=== PATIENT | female | born 1950 | race Caucasian/White ===

== ENCOUNTER 2023-08-25 06:17 | Observation (INO) ==
--- NOTE | 2023-07-21 13:43 | PAT Medication Instructions ---
Medication Instructions Date of Service July 21, 2023 Home Medications amlodipine 5 mg tablet 5 mg PO QPM atorvastatin 20 mg tablet 20 mg PO QPM hydrochlorothiazide 12.5 mg tablet 12.5 mg PO UD losartan 100 mg tablet 100 mg PO QPM cholecalciferol (vitamin D3) 50 mcg (2,000 unit) capsule (Vitamin D3) 50 mcg PO QAM diphenoxylate-atropine 2.5 mg-0.025 mg tablet (Lomotil) 1 tab PO DAILY sertraline 100 mg tablet (Zoloft) 100 mg PO QAM MEDICATION INSTRUCTIONS: DO NOT take the morning of surgery hydrochlorothiazide 12.5 mg tablet 12.5 mg PO UD cholecalciferol (vitamin D3) 50 mcg (2,000 unit) capsule (Vitamin D3) 50 mcg PO QAM diphenoxylate-atropine 2.5 mg-0.025 mg tablet (Lomotil) 1 tab PO DAILY Take morning of surgery With a small sip of water, OTHERWISE NOTHING TO EAT OR DRINK AFTER MIDNIGHT: sertraline 100 mg tablet (Zoloft) 100 mg PO QAM Take evening before surgery amlodipine 5 mg tablet 5 mg PO QPM atorvastatin 20 mg tablet 20 mg PO QPM losartan 100 mg tablet 100 mg PO QPM Other Notes If you have any questions please call us at [phone] or [phone] or [phone] or [phone]
--- NOTE | 2023-07-27 09:16 | Anesthesiology Consultation ---
Date of Service July 27, 2023 Assessment & Plan (1) Encounter for pre-operative examination: Plan - cardiology clearance 06/26/23 [facility]: "...prolong WT interval...transient QT prolongation on EKG OctoberJanuary 2018 in association with acute illness and medications. No further QT prolongation...denies any cardiac complications...anticipates knee surgery...continue current medications...No cardiac contraindications to planned knee surgery..." - Outpatient joint assessment: Patient is currently scheduled for inpatient pathway. If re-evaluated and patient/surgeon requests outpatient pathway, per discussion with Dr. Sr patient is acceptable candidate for outpatient joint program from anesthesia standpoint pending surgeon's office assessment of pt motivation/support/completion of same day joint program preop requirements. Chart Review Chart Review: Acceptable Risk for Surgery and Patient seen in Pre Admission Testing Teaching & Discussion Pre-Anesthesia Teaching/Discussion Notes: Instructed NPO after midnight before surgery, except medications with 15 cc of water. Medication instructions provided according to the PAT guidelines. History Surgery Operation Date: 08/25/23 10:15 Proposed Procedures p Right Total Knee Arthroplasty - Chuck Larson DO Height/Weight Height: 5 ft 8 in Weight: 84.2 kg Allergies Allergy/AdvReac Type Severity Reaction Status Date / Time oxaliplatin Allergy Anaphylaxis Verified 07/15/23 08:29 Medications Home Medications Medication Instructions Recorded Confirmed Last Taken amlodipine 5 mg tablet 5 mg PO QPM 11/01/20 07/15/23 03/13/22 21:00 atorvastatin 20 mg tablet 20 mg PO QPM 11/01/20 07/15/23 03/13/22 21:00 hydrochlorothiazide 12.5 mg tablet 12.5 mg PO UD 11/01/20 07/15/23 03/10/22 09:00 losartan 100 mg tablet 100 mg PO QPM 11/01/20 07/15/23 03/13/22 21:00 cholecalciferol (vitamin D3) 50 50 mcg PO QAM 07/26/21 07/15/23 03/07/22 21:00 mcg (2,000 unit) capsule (Vitamin D3) diphenoxylate-atropine 2.5 1 tab PO DAILY 07/10/23 07/15/23 Unknown mg-0.025 mg tablet (Lomotil) sertraline 100 mg tablet (Zoloft) 100 mg PO QAM 07/15/23 07/15/23 Unknown Past Medical History Medical History (Updated 07/27/23 @ 09:13 by Chika Wright PA-C) Anxiety Persaud esophagus Bradycardia Chronic, asymptomatic Baseline HR 40-60s Breast cancer Right, 2002 s/p surgery/chemo/xrt-denies limb restriction Chronic vertigo Colon cancer 2007, s/p surgery/chemo Degenerative arthritis of knee, bilateral Eczema History of anesthesia reaction bradycardia History of basal cell cancer s/p excision History of COVID-19 04/2023, mild symptoms, resolved History of Mohs micrographic surgery for skin cancer SCC, Right eye History of rheumatic fever as a child HTN (hypertension) controlled, stable per pt Hyperlipidemia Mitral valve prolapse 2022 ECHO--mild, follows with Dr Herring Multiple thyroid nodules Recent test/evaluation "all normal" Prediabetes Prolonged QT interval Possibly medication induced per records (follows with Dr. Herring) PVCs (premature ventricular contractions) Hx, no current issues TMJ (temporomandibular joint disorder) No locking Patient denies h/o stroke, seizures, heart attack, heart failure, blood clots/DVTs or blood transfusions. Exercise / Class Metabolic Activity II 4-5 Yardwork/Stairs/Walk up hill (denies chest discomfort or shortness of breath with 1 FOS) Past Family History Family History Mother Colon cancer, Onset Age: 43 Past Surgical History Surgical History (Updated 07/27/23 @ 09:14 by Chika Wright PA-C) H/O colonoscopy H/O partial mastectomy H/O repair of rotator cuff right History of carpal tunnel surgery R/L History of cataract removal with insertion of prosthetic lens R/L History of esophagogastroduodenoscopy (EGD) For chronic cough evaluation (dx barretts) History of fusion of cervical spine C 2- C5--10/2020 > ROM limitations per pt History of hysteroscopy History of laparoscopy Pelvic Washings, Right Salpingo-Oophoretomy(Right) History of partial surgical removal of colon History of removal of ovarian cyst Hx of breast biopsy Hx of hysterectomy Hx of removal of ovary Past Anesthesia History No Hx of Anesthesia Complications and No Family Hx of Anesthesia Complications History of PONV No Hx of PONV and No Hx of Motion Sickness Social History Smoking Status: Never smoker Do You Dip or Chew Tobacco: No Hx Alcohol Use: Yes Alcohol type: wine alcohol intake frequency: a few times a week Hx Substance Use: No substance use type: does not use Review of Systems Nasal congestion and runny nose, watery eyes; denies cough, fever, chills, pharyngitis, rash, myalgias, nausea, vomiting or fatigue/malaise. She reports negative home COVID test yesterday. Patient denies chest pain, shortness of breath, dyspnea on exertion, snoring, witnessed apneas, reflux, or palpitations. Physical Exam Vital Signs Vitals BP 127/64 P 59 TEMP 97.7 SP02 96% on RA RESP 18 Physical Patient resting comfortably in chair in no acute distress, alert and oriented, responding appropriately throughout visit Moderately limited cervical extension range of motion without pain TMD 3.5 finger breadths Mallampati Score 3 Dentition: several crowns, denies chipped or loose teeth, implants or bridges Lungs: normal respiratory effort. Good air movement, clear throughout to auscultation, no adventitious breath sounds Cardiac: regular rate and rhythm, no murmurs noted Carotid arteries: negative bruit bilat Lab Results Anesthesia Preop Results Results Anesthesia Widget: WBC 4.05 K/ul (4.8-10.8) L 07/27/23 Hgb 12.8 g/dl (12.0-16.0) 07/27/23 Hct 38.3 % (37.0-47.0) 07/27/23 Plt 179 K/uL (130-400) 07/27/23 Na 138 mmol/L (136-145) 07/27/23 K 3.7 mmol/L (3.5-5.1) 07/27/23 Cl 102 mmol/L (98-107) 07/27/23 CO2 30 mmol/L (21-32) 07/27/23 BUN 13 mg/dl (6-23) 07/27/23 Creat 0.63 mg/dl (0.6-1.2) 07/27/23 Glucose Level 96 mg/dl (70-99(Fasting)) 07/27/23 PT 10.8 Seconds (9.0-12.0) 07/27/23 PTT 27 Seconds (21-31) 07/27/23 INR 1.0 (0.9-1.1) 07/27/23 HA1c 6.0 % (4.5-5.6) H 07/27/23 Urine Color Yellow 07/27/23 Urine Appearance Clear (Clear) 07/27/23 Urine pH 5.0 (4.5-7.5) 07/27/23 Urine Specific Fenton 1.017 (1.000-1.030) 07/27/23 Urine Protein Negative (Negative) 07/27/23 Urine Glucose (UA) Negative (Negative) 07/27/23 Urine Ketones Negative (Negative) 07/27/23 Urine Blood Negative (Negative) 07/27/23 Urine Nitrite Negative (Negative) 07/27/23 Urine Bilirubin Negative (Negative) 07/27/23 Urine Urobilinogen Negative (Negative) 07/27/23 Urine Leukocyte Esterase 2+ (Negative) H 07/27/23 Urine WBC (Auto) 10-30 /hpf (0-5) H 07/27/23 Urine RBC (Auto) 10-30 /hpf (0-4) H 07/27/23 Urine Hyaline Casts (Auto) 1-5 /lpf (0-5) 07/27/23 Urine Epithelial Cells (Auto) >30 /lpf (0-5) H 07/27/23 Urine Bacteria (Auto) Negative (Negative) 07/27/23 Blood Type A Negative 07/27/23 Antibody Screen NEGATIVE 07/27/23 Testing Electrocardiogram Date: 09/29/22 Sinus bradycardia, rate 57 bpm Chest X-Ray Date: 03/25/23 No acute cardiopulmonary abnormality. Borderline cardiomegaly. Echocardiogram Date: 04/02/23 EF 55-59% Normal LV wall motion Moderately enlarged LA Grade I diastolic dysfunction Moderate mitral regurgitation Mild tricuspid regurgitation Stress Test Date: 06/03/19 Exercise METS 8 MPHR 99% Negative for inducible ischemia Mild cLVH Grade I diastolic dysfunction Atrial septum aneurysm EF 55-60% Mild mitral regurgitation Mild tricuspid regurgitation
--- NOTE | 2023-07-27 13:58 | History & Physical Report ---
Date of Service July 27, 2023 date of surgery: 08/25/23 Procedure: Right Total Knee Arthroplasty Surgeon: Chuck Larson DO Assessment & Plan (1) Arthritis of right knee: Plan: Risk and benefits of the procedure were discussed, whether he proceed with right total knee arthroplasty. Will place on aspirin 81 mg twice a day for 1 month postop DVT prophylaxis. Will plan for possible outpatient joint program with discharge home with home health nursing and physical therapy. Follow-up in the office 2 weeks after surgery or sooner if she having any issues The risks and benefits have been discussed including, but not limited to, risk of infection, nerve injury, stiffness, loss of motion, failure to improve, etc. Reasonable outcomes and options of treatment were discussed. An explanation of appropriate alternatives to the procedure that may be advantageous were discussed and their risks and benefits, as well as the risks and benefits of not proceeding with treatment. I offered to answer any additional inquiries concerning the treatment involved. All the patient's questions were answered. The patient is agreeable, understanding of the treatment plan and alternatives, and wishes to proceed with the treatment plan. Please note the above document was generated using voice recognition software. It may contain grammatical, syntax or spelling errors. Any formal questions or concerns about the content, text or information contained within the body of this dictation should be directly addressed to the provider for clarification History of Present Illness Chief Complaint: Right knee pain Primary Care Provider: Maxwell Neely MD Essie is a 73-year-old female who presented for preop evaluation prior to upcoming right total knee arthroplasty. She is a longstanding history of right knee pain which gradually worsened and is now affecting her daily activities including walking standing. She has had previous corticosteroid injection with no improvement, also tried oral anti-inflammatories and Tylenol. She has complaints of pain decreased range of motion intermittent swelling and stiffness. At this point time is failed conservative measures and wished to proceed the right total knee replacement Allergies Allergy/AdvReac Type Severity Reaction Status Date / Time oxaliplatin Allergy Anaphylaxis Verified 07/15/23 08:29 Home Medications Medication Instructions Recorded Confirmed Type amlodipine 5 mg tablet 5 mg PO QPM 11/01/20 07/15/23 History atorvastatin 20 mg tablet 20 mg PO QPM 11/01/20 07/15/23 History hydrochlorothiazide 12.5 mg tablet 12.5 mg PO UD 11/01/20 07/15/23 History losartan 100 mg tablet 100 mg PO QPM 11/01/20 07/15/23 History cholecalciferol (vitamin D3) 50 50 mcg PO QAM 07/26/21 07/15/23 History mcg (2,000 unit) capsule (Vitamin D3) diphenoxylate-atropine 2.5 1 tab PO DAILY 07/10/23 07/15/23 History mg-0.025 mg tablet (Lomotil) sertraline 100 mg tablet (Zoloft) 100 mg PO QAM 07/15/23 07/15/23 History Past Med/Surg History Medical History History of Mohs micrographic surgery for skin cancer SCC, Right eye History of anesthesia reaction bradycardia Anxiety Mitral valve prolapse 2022 ECHO--mild, follows with Dr Herring History of COVID-19 04/2023, mild symptoms, resolved Degenerative arthritis of knee, bilateral Eczema TMJ (temporomandibular joint disorder) No locking Bradycardia Chronic, asymptomatic Baseline HR 40-60s Chronic vertigo Prediabetes Multiple thyroid nodules Recent test/evaluation "all normal" History of rheumatic fever as a child PVCs (premature ventricular contractions) Hx, no current issues Prolonged QT interval Possibly medication induced per records (follows with Dr. Herring) Persaud esophagus Hyperlipidemia HTN (hypertension) controlled, stable per pt History of basal cell cancer s/p excision Breast cancer Right, 2002 s/p surgery/chemo/xrt-denies limb restriction Colon cancer 2007, s/p surgery/chemo Surgical History Hx of hysterectomy History of hysteroscopy History of laparoscopy Pelvic Washings, Right Salpingo-Oophoretomy(Right) History of fusion of cervical spine C 2- C5--10/2020 > ROM limitations per pt History of esophagogastroduodenoscopy (EGD) For chronic cough evaluation (dx barretts) History of carpal tunnel surgery R/L Hx of breast biopsy H/O repair of rotator cuff right History of cataract removal with insertion of prosthetic lens R/L Hx of removal of ovary H/O partial mastectomy H/O colonoscopy History of removal of ovarian cyst History of partial surgical removal of colon Family History Mother Colon cancer, Onset Age: 43 Social History Smoking Status: Never smoker Second Hand Exposure: No; Do You Dip or Chew Tobacco: No; Hx Alcohol Use: Yes Alcohol type: wine Hx Substance Use: No Preferred Language: Yakut Communication Ability: Effective Wedding Transportation Driver Required: No Beliefs That Will Affect Care: None marital status: Current Living Situation: Spouse Feels Safe at Home: Yes Assistive Devices: None Review of Systems Review of Systems: All systems reviewed & are unremarkable except as noted in HPI & below Constitutional: no fever, no chills and no sweats Respiratory: no cough and no dyspnea Cardiovascular: no chest pain, no dyspnea and no orthopnea Gastrointestinal: no abdominal pain, no nausea and no vomiting Musculoskeletal: as per Subjective / HPI Physical Exam Physical Exam: HT: 5ft 8in WT: 84.2kg Constitutional: WD/WN, vitals as above no acute distress Respiratory: normal respiratory effort, lungs clear to auscultation no respiratory distress, no labored breathing and does not use accessory muscles Cardiovascular: RRR, no murmur, no edema Gastrointestinal (Abdomen): normal bowel sounds, soft, nontender, no hepatosplenomegaly Musculoskeletal: Knee: + knee abnormal to inspection (RIGHT KNEE), + effusion (+1 effusion), + limited ROM of knee (ROM 0/3/110), + knee ROM with crepitation, + joint line tenderness (medial joint line) and + Gregory's sign positive; no deformity, no skin erythema, no ecchymosis, no valgus laxity, no varus laxity, anterior drawer test negative, Anne-Marie's sign negative and pivot shift test negative Results & Data Results & Data Diagnostic Findings 4 views of the right knee show advanced degenerative changes to the right patellofemoral joint with joint space narrowing osteophyte formation. Mild degenerative changes to the medial lateral compartment
[~2023-08-25 06:17] MED LIST: ROPIVACAINE 0.5% 5 MG/ML 30 ML VIAL ONE
[2023-08-25] MEDS ORDERED: PROPOFOL IV EMULSION 10 MG/ML 20 ML VIAL IV ONE (06:38)
[2023-08-25] MEDS ORDERED: MIDAZOLAM HCL 1 MG/ML 2ML VIAL ONE (06:38)
[2023-08-25] MEDS ORDERED: fentaNYL citrate PF 100 MCG/2 ML VIAL ONE (06:38)
[2023-08-25] MEDS: dexAMETHasone**PF** 10 MG/ML VIAL IV SCH (06:54)
[2023-08-25] MEDS: LR 500ML BOLUS, THEN 15ML/HR IV SCH (06:54)
[2023-08-25] MEDS: CeleBREX 200 MG CAP PO SCH (06:55)
[2023-08-25] MEDS: METOCLOPRAMIDE HCL 10 MG TABLET PO SCH (06:55)
[2023-08-25] MEDS: GABAPENTIN 300 MG CAP PO SCH (06:55)
[2023-08-25] MEDS: LR 60ML/HR IV SCH (06:55)
[2023-08-25] MEDS: ACETAMINOPHEN 500 MG TAB PO SCH ×2 (06:55→14:03)
[2023-08-25] MEDS: FAMOTIDINE 20 MG TAB PO SCH (06:55)
[2023-08-25] MEDS ORDERED: ATROPINE SULFATE 0.1 MG/ML 10ML SYR IV PRN (07:11)
[2023-08-25] MEDS ORDERED: fentaNYL citrate PF 100 MCG/2 ML VIAL IV PRN (07:11)
[2023-08-25] MEDS ORDERED: ONDANSETRON INJ 2 MG/ML 2 ML VIAL IV PRN ×2 (07:11→13:28)
[2023-08-25] MEDS ORDERED: ePHEDrine sulfate 50 MG/ML AMP IV PRN (07:11)
[2023-08-25] MEDS ORDERED: HYDROmorphone INJ 1 MG/ML SYRINGE IV PRN ×2 (07:11→13:28)
--- NOTE | 2023-08-25 07:24 | History & Physical Bridge Note ---
Date of Service August 25, 2023 History & Physical Bridge Note I have examined the patient, reviewed the History & Physical and in the interval since the performance of the History & Physical I have noted the following changes of clinical significance: no changes noted
[2023-08-25] MEDS: TRANEXAMIC ACID / 0.7% NACL 1000MG/100ML BAG IV ONE (08:03)
[2023-08-25] MEDS: ceFAZolin 2000MG 2,000 MG/15 ML SYR IV SCH ×2 (08:15→15:56)
[2023-08-25] MEDS ORDERED: DEXAMETHASONE SOD INJ 4 MG/ML VIAL ONE (08:46)
[2023-08-25] MEDS: ROPIV 0.5% 246mg, Ketorolac 30mg, EPINEPHrine 0.5mg in NSS INFIL SCH (08:58)
[2023-08-25] MEDS: ORTHO JOINT ANESTHETIC ONE (08:58)
[2023-08-25] MEDS: TRANEXAMIC ACID 100 MG/ML 10 ML VIAL IV ONE (09:28)
--- NOTE | 2023-08-25 09:31 | Operative Report ---
Post Operative Report Pre & Post Diagnosis Operation Date: 08/25/23 08:00 Pre-Op Diagnosis: Right Knee Osteoarthritis Post-Op Diagnosis: Right Knee Osteoarthritis I identified the patient and participated in the time-out.: Yes Procedure Operation Date: 08/25/23 08:00 Actual Procedures p Right Total Knee Arthroplasty(Right)Utilizing [employer] journey 2 patient-matched total knee arthroplasty size femur 5 tibia 5 poly 12 patella 32 sergio Larson DO Surgeon Chuck Larson DO Human Resources Executive Assistant bassam MONTEIRO Estimated Blood Loss 5 Findings Consistent with Post-Op Diagnosis Patient presents with severe end-stage tricompartmental DJD 5 degree flexion contracture varus alignment subchondral sclerosis marginal osteophytes subchondral sclerosis moderate to large effusion Specimens Bone and cartilage Drains Medium bore Hemovac Anesthesia Type MAC Spinal Regional Complications none Disposition Accompanied Patient To Recovery: No Disposition: Recovery Room Indications Patient presents with severe end-stage DJD failed attempted conservative management including physical therapy anti-inflammatories relative rest activity modification corticosteroid injection viscosupplementation above intraoperative findings were noted Description of Procedure After proper prepping and draping of the Right lower extremity anterior midline incision was made over the region of the extensor extensor mechanism after meticulous hemostasis was obtained and maintained in subcutaneous tissues a m edial parapatellar incision was made The patella was subluxed lateralward the medial lateral gutter were cleaned from any hypertrophic synovitis and scar tissue of the distal femoral block was placed and the distal femoral osteotomy cut was made subsequently the chamfers anterior and posterior osteotomy cuts were made utilizing the 4-in-1 block the tibia was subsequently subluxed anteriorward medial and ateral meniscal remnants were excised in their entirety remnants of the anterior and posterior cruciate ligaments were excised in their entirety excellent exposure of the proximal tibia was obtained the tibial osteotomy guide was placed on the proximal tibial osteotomy cut was made once again the knee was irrigated with copious amounts of sterile saline solution the patella was subsequently everted lateralward thickened scar tissue around the patella was removed the patella was subsequently cut utilizing a freehand technique and was drilled prepared for final preparation and placement of patella socially flexion-extension gaps were checked and the equal and symmetric trials were placed to the appropriate femoral and tibial trials with poly-spacer being placed for equal flexion and extension gaps and full range of motion including extension to 0 and flexion to 140 the trial components after having been taken to recovery range of motion was subsequently removed meticulous hemos tasis was obtained and maintained subsequently a knee block injection of joint cocktail including ropivacaine 0.5% 150 mg. Bupivacaine 0.5% epinephrine 1- 200,030 mL's toradol 30 mg dexamethasone 4 mg ketamine 10 mg clonidine 100 micrograms normal saline solution 30 mg was infiltrated into the soft tissues of the posterior knee medial lateral gutters and periosteal synovium special attention was paid to protect neurovascular structures at all times subsequently trial components having been removed the knee was irrigated with sterile saline solution. debris was removed the proximal tibia was subsequently prepared and was made ready for the placement of the tibial component tibial component was also cemented and tamped into position the femoral component was subsequently placed and cemented in the position the patellar component was subsequently cemented in position because hemostasis once again obtained and maintained wound having been thoroughly irrigated with debridement and debridement lavage was performed as well as a medial parapatellar incision closed with #1 Vicryl in interrupted fashion subcutaneous was closed with #2 Vicryl skin was closed with skin clips. PA-C was necessary for prepping and drapping as well as wound closure of deep fascia Sub cutaneous tissue and skin and was necessary for the case. A sterile compressive dressing was placed patient was taken to recovery in stable condition of report dictated by Neo I attest to the content of the Intraoperative Record and any orders documented therein. Any exceptions are noted below.Due to the complex nature of the procedure, the entire surgery was performed with the operational assistance ofCAYETANO St. The health education assistant, under direct supervision, was involved in the actual performance of all aspects of the surgical procedure including hemostasis, tissue retraction and incision, instrument management, patient positioning, and wound closure. I attest to the content of the Intraoperative Record and any orders documented therein. Any exceptions are noted below.
--- NOTE | 2023-08-25 10:56 | XRay Report ---
RIGHT KNEE 2 VIEWS History: Right total knee arthroplasty. Degenerative arthritis. Postop. FINDINGS: The patient is status post a right total knee arthroplasty. The hardware is intact. No frac ture or dislocation. Skin kade and surgical drains are in place. IMPRESSION: Right total knee arthroplasty. No evidence for hardware complication. ACT 112: Negative or not required by law. Electronically signed by: Stewart De La Rosa M.D. 08/25/2023 10:55 AM
--- NOTE | 2023-08-25 11:44 | Anesthesiology Progress Note ---
Date of Service August 25, 2023 Anesthesia Post Procedure Vital Signs Vital Signs: Temp Pulse Resp BP Pulse Ox O2 Del Method 08/25/23 11:30 63 13 137/62 94 Room Air 08/25/23 11:15 56 L 13 136/68 94 Room Air 08/25/23 11:00 59 L 21 139/79 96 Room Air 08/25/23 10:50 58 L 16 137/63 93 Room Air 08/25/23 10:40 62 14 140/75 92 Room Air 08/25/23 10:30 61 20 141/74 H 95 Room Air 08/25/23 10:20 67 17 130/59 L 95 Room Air 08/25/23 10:10 62 20 138/66 94 Room Air 08/25/23 10:00 64 15 137/62 92 Room Air 08/25/23 09:50 36.1 C L 63 22 127/55 L 97 Room Air 08/25/23 06:45 36.7 C 59 L 18 161/80 H 98 Room Air Transfer of Care Handoff Completed per policy Notes Mental Status: alert / awake / arousable and participated in evaluation Patient Amnestic to Procedure: Yes Nausea / Vomiting: adequately controlled Pain: adequately controlled Airway Patency, RR, SpO2: stable & adequate BP & HR: stable & adequate Hydration State: stable & adequate Anesthetic Complications: no major complications apparent and Pt Satisfied with anesthetic care
[2023-08-25] MEDS: TRANEXAMIC ACID 1,000 MG **IV Pre-op IV ONE (13:27)
[2023-08-25] MEDS ORDERED: MAGNESIUM HYDROXIDE SUSP 30 ML UDC PO PRN (13:28)
[2023-08-25] MEDS ORDERED: METOCLOPRAMIDE HCL INJ 5 MG/ML 2 ML VIAL IV PRN (13:28)
[2023-08-25] MEDS ORDERED: bisacodyL 10 MG SUPP PR PRN (13:28)
[2023-08-25] MEDS ORDERED: diphenhydrAMINE Capsule 25 MG CAP PO PRN (13:28)
[2023-08-25] MEDS ORDERED: NALOXONE HCL 0.4 MG/1 ML VIAL/CARP IV PRN (13:28)
[2023-08-25] MEDS: SODIUM CHLORIDE 0.9% 1,000 ML IV SCH (14:02)
[2023-08-25] MEDS: KETOROLAC TROMETHAMINE 15 MG/ML VIAL IV SCH (14:03)
[2023-08-25] MEDS: oxyCODONE HCL IR 5 MG TAB (IMMEDIATE RELEASE) PO PRN (21:23)
[2023-08-25] MEDS: ATORVASTATIN 20 MG TAB PO SCH (21:25)
[2023-08-25] MEDS: ASPIRIN 81 MG ECTAB PO SCH (21:25)
[2023-08-25] MEDS: amLODIPine BESYLATE 5 MG TAB PO SCH (21:26)
[2023-08-25] MEDS: SENNA 8.6 MG TAB PO SCH (21:28)
[2023-08-25] MEDS: DOCUSATE SODIUM 100 MG CAP PO SCH (21:28)
[2023-08-25] MEDS: LOSARTAN POTASSIUM 50 MG TAB PO SCH (21:29)
[2023-08-26] MEDS ORDERED: Nursing to Pharmacy Communication SCH (01:15)
--- NOTE | 2023-08-26 07:02 | Orthopedic Progress Note ---
Date of Service August 26, 2023 Assessment & Plan (1) History of total right knee replacement: Plan: POD #1 s/p Right TKA pt/ot dvt proph with JAYY/SCD/ASA plan for d/c home with HHPT Admission and Anticipated Discharge Date Admission Date: August 25, 2023 Subjective POD #1 s/p Right TKA Review of Systems Constitutional: no fever, no chills and no sweats Respiratory: no cough and no dyspnea Cardiovascular: no chest pain and no dyspnea Gastrointestinal: no abdominal pain, no nausea and no vomiting Physical Exam Physical Exam: Vital Signs Temp 36.5 C 08/26/23 04:00 Pulse 52 L 08/26/23 04:00 Resp 18 08/26/23 04:00 BP 137/76 08/26/23 04:00 Pulse Ox 98 08/26/23 04:00 O2 Del Method Room Air 08/26/23 04:00 Intake & Output 08/25/23 08/26/23 08/26/23 18:59 06:59 18:59 Intake Total 1500 / 2740 1240 / 2740 Output Total 80 / 580 500 / 580 Balance 1420 / 2160 740 / 2160 Weight 83.9 kg Intake: IV 0 / 1000 1000 / 1000 Lactated Ringe r's 1,000 ml @ 15 0 / 0 mls/hr IV .Q24 H LAURA Rx#: [id number] Sodium Chlorid e 0.9% 1,000 ml @ 1000 / 1000 100 mls/hr IV .Q10H LAURA Rx#: [id number] IV Perioperative 1500 / 1500 Oral 240 / 240 Output: Urine 500 / 500 Estimated Blood Loss 5 / 5 Drain Output 75 / 75 Right Knee 75 / 75 Other: # Unmeasured Voi ds 2 Weight Measureme nt Method Built in [facility] Musculoskeletal: Right Leg: NVDI, calf SNT, negative zane sign. DP palpable, able to wiggle toes/ankle movement without difficulty. dressing clean dry and intact. Results & Data Vital Signs (Past 12 Hours) Vital Signs Temp Pulse Resp BP Pulse Ox O2 Del Method 08/26/23 04:00 36.5 C 52 L 18 137/76 98 Room Air 08/26/23 00:00 36.7 C 52 L 18 153/66 H 96 Room Air
--- NOTE | 2023-08-26 07:05 | Discharge Summary ---
Date of Service date of discharge: August 26, 2023 date of admission: 08/25/23 Admission HPI Per Admitting Provider Essie is a 73-year-old female who presented for preop evaluation prior to upcoming right total knee arthroplasty. She is a longstanding history of right knee pain which gradually worsened and is now affecting her daily activities including walking standing. She has had previous corticosteroid injection with no improvement, also tried oral anti-inflammatories and Tylenol. She has complaints of pain decreased range of motion intermittent swelling and stiffness. At this point time is failed conservative measures and wished to proceed the right total knee replacement Principal Diagnosis right knee arthritis Discharge Exam Vital Signs Temp 36.5 C 08/26/23 04:00 Pulse 52 L 08/26/23 04:00 Resp 18 08/26/23 04:00 BP 137/76 08/26/23 04:00 Pulse Ox 98 08/26/23 04:00 O2 Del Method Room Air 08/26/23 04:00 Intake & Output 08/25/23 08/26/23 08/26/23 18:59 06:59 18:59 Intake Total 1500 / 2740 1240 / 2740 Output Total 80 / 580 500 / 580 Balance 1420 / 2160 740 / 2160 Weight 83.9 kg Intake: IV 0 / 1000 1000 / 1000 Lactated Ringer's 1,000 ml @ 15 0 / 0 mls/hr IV .Q24H LAURA Rx#: [id number] Sodium Chloride 0.9% 1,000 ml @ 1000 / 1000 100 mls/hr IV .Q10H LAURA Rx#: [id number] IV Perioperative 1500 / 1500 Oral 240 / 240 Output: Urine 500 / 500 Estimated Blood Loss 5 / 5 Drain Output 75 / 75 Right Knee 75 / 75 Other: # Unmeasured Voids 2 Weight Measurement Method Built in Bedscale Musculoskeletal right knee: NVDI, calf SNT, negative zane sign. DP palpable, able to wiggle toes/ankle movement without difficulty. HEMALATHA dressing clean dry and intact. Discharge Data Allergies Allergy/AdvReac Type Severity Reaction Status Date / Time oxaliplatin Allergy Anaphylaxis Verified 08/25/23 06:41 Procedures Performed Operation Date: 08/25/23 08:00 Actual Procedures p Right Total Knee Arthroplasty(Right) - Chuck Aguilar DO Ordered Studies 08/25/23 05:00 US guide needle placement Routine Hospital Course (1) History of total right knee replacement: POD #1 s/p Right TKA pt/ot dvt proph with JAYY/SCD/ASA plan for d/c home with HHPT Total Time Total Time Spent Total Time Spent (In Minutes): 20 Discharge Plan Discharge Items Patient Disposition: Home - Home Health Services Reason For Visit: Right Knee Osteoarthritis Discharge Diagnosis: right total knee replacement Activity: Per Instructions section Weightbearing Comment: WBAT with walker Non-emergency contact: Surgeon Call non-emergency contact if: you have any medication questions, your temperature is above 101, your wound has increased redness, your wound has increased drainage and your wound pain has increased Follow-up/Referrals: Maxwell Neely MD [Primary Care Provider] - Diet: Regular Addtl Attending Provider Instructions: ACTIVITY RECOMMENDATIONS: SELF CARE INSTRUCTIONS AFTER TOTAL KNEE REPLACEMENT A. You may need to continue a physical therapy program after discharge from the hospital. There are several options available to you. Your doctor will assist you in selecting the best one for you. 1. An out-patient facility 2 to 3 times a week for therapy or home therapy. 2. Continue working on all exercises taught to you in the hospital. Your goals should be to increase bending of your knee to 90 degrees and beyond and to fully straighten your knee. B. You may progress at your own pace from walking with a walker or crutches to a cane; then to no assistive devices. C. Make walking a part of your daily routine. Be up as much as comfortable with rest periods throughout the day. Rest with leg elevation is very important. Use the ice wrap frequently for the first 3-4 weeks. D. There are no restrictions on activities. You may ride in a car, shop, participate in hand roller engraver and all social activities. E. Wear the long elastic stockings (JAYY hose) 20 hours a day for 2 weeks after surgery. They can be removed several times a day for laundering and for a bath. F. You may shower, no tub baths until cleared by your doctor. SPECIAL CARE INSTRUCTIONS: VERY IMPORTANT TO READ AND REVIEW A. There are a few signs you need to watch for after you are home. Call [facility] if you notice any of the followin. Increased severe knee pain. Some pain is expected especially when you exercise. 2. Increased swelling in your leg or knee; pain or swelling of the calf muscle in either lower leg. 3. Any fluid drainage from the incision. 4. Shortness of breath or chest pain. B. Please call [facility] at if you have any concerns or questions about your operation or recovery. The doctor or his nurse will return your call promptly. C. You must take antibiotics before dental work, bladder, bowel or other surgery. Your doctor will provide you with a permanent care to carry describing this precaution. IMPORTANT: * REMEMBER TO TAKE ASPIRIN, 81 MG, TWICE DAILY FOR 4 WEEKS UNLESS OTHERWISE DIRECTED. THIS IS YOUR BLOOD THINNER. * HIGH RISK PATIENTS MAY BE PRESCRIBED A STRONGER BLOOD THINNER. THIS WILL BE PROVIDED AT DISCHARGE. * CALL IF INCREASED PAIN, REDNESS, DRAINAGE OR FEVER GREATER THAT 101. * WEAR JAYY HOSE 20 HOURS PER DAY FOR 2 WEEKS. DRESSING INSTRUCTIONS * HEMALATHA Dressing- This is a large suction dressing covering your incision. This will help pull any excess drainage from the wound and allow your incision to heal properly. You may shower with this if you can keep the unit outside of the shower. If any bleeding or leakage is noted please call your doctor's office. This will remain on your incision for 7 days and then should be removed. This can be done yourself or by the home nursing staff if applicable. The entire unit is disposable once removed. Once removed, keep incision clean and dry. If redness or drainage is noted, please call your surgeon. ONCE HEMALATHA IS REMOVED, FOLLOW THESE INSTRUCTIONS: IF INCISION IS LEAKING THROUGH DRESSING, CALL THE OFFICE . FOLLOW UP VISIT: If appointment is not already scheduled: Please call [facility] to make a follow-up appointment for 2 weeks after your surgery at . Pending Studies at Discharge: No Stand-Alone Forms: [facility] Medications and DC Order Prescriptions: New acetaminophen 500 mg tablet 1,000 mg PO Q8 21 Days Qty: 126 0RF celecoxib [Celebrex] 200 mg capsule 200 mg PO BID 30 Days Qty: 60 0RF aspirin 81 mg tablet,delayed release (DR/EC) 81 mg PO BID 30 Days Qty: 60 0RF cefadroxil 500 mg capsule 500 mg PO BID 14 Days Qty: 28 0RF docusate sodium 100 mg Capsule 100 mg PO BID Qty: 20 0RF oxycodone 5 mg tablet 5 - 10 mg PO Q6H PRN (Reason: pain) Qty: 30 0RF Rx Instructions: ongoing therapy, supervising dr ely aguilar. max 6 tabs in 24 hours. date of surgery 08/25/23 Continued amlodipine 5 mg tablet 5 mg PO QPM losartan 100 mg tablet 100 mg PO QPM atorvastatin 20 mg tablet 20 mg PO QPM hydrochlorothiazide 12.5 mg tablet 12.5 mg PO UD Patient Comments: 1-2 X PER WEEK IN THE MORNING , USUALLY THU AND THURSDAYS diphenoxylate-atropine [Lomotil] 2.5-0.025 mg tablet 1 tab PO DAILY cholecalciferol (vitamin D3) [Vitamin D3] 50 mcg (2,000 unit) Capsule 50 mcg PO QAM sertraline [Zoloft] 100 mg Tablet 100 mg PO QAM Discontinued acetaminophen [Tylenol Arthritis Pain] 650 mg Tablet Extended Release 650 mg PO Q12H PRN (Reason: Pain) Admission Data Admit Date/Time: 08/25/23 09:58 Attending Provider: Chuck Aguilar Admit Provider: Chuck Aguilar Primary Care Provider: Maxwell Neely Other Providers: [facility]
[2023-08-26 07:06] LABS: Hematocrit (blood only) 29.4 % (37.0-47.0); Hemoglobin 9.8 g/dl (12.0-16.0); Mean Corpuscular Hemoglobin 31.2 pg (25.0-34.0); Mean Corpuscular Hgb Conc 33.3 g/dL (32.0-36.0); Mean Corpuscular Volume 93.6 fL (80.0-100.0); Mean Platelet Volume 11.2 fL (9.4-12.4); Platelet Count 149 K/uL (130-400); RDW Coefficient of Variation 13.6 % (11.5-14.5); RDW Standard Deviation 46.3 fL (36.4-46.3); Red Blood Count 3.14 M/uL (4.20-5.40); White Blood Count 13.67 K/ul (4.8-10.8)
[2023-08-26] MEDS: MULTIVITAMIN TAB PO SCH (07:58)
[2023-08-26] MEDS: DIPHENOXYLATE/ATROPINE 2.5/0.025MG TAB PO SCH (07:58)
[2023-08-26] MEDS: CeleBREX 200 MG CAP PO SCH (07:59)
[2023-08-26] MEDS: CHOLECALCIFEROL 25 MCG (1000 UNITS) TAB PO SCH (07:59)
[2023-08-26] MEDS: SERTRALINE HCL 100 MG TABLET PO SCH (07:59)
[2023-08-26 08:02] LABS: BUN Creatinine Ratio 33.3 (10-20); Calcium 8.7 mg/dl (8.6-10.3); Est GFR (African American) 103.3 ml/min; Est GFR (Non-African American) 89.2 ml/min; Potassium 3.9 mmol/L (3.5-5.1)
[2023-08-27] MEDS ORDERED: hydroCHLOROthiazide 25 MG TAB PO SCH (09:00)
== END 2023-08-26 11:32 | disposition home health service (06) ==
LOC: ASU 06:17 → PACUINP 06:17 → 3E 13:22